=== PATIENT | female | born 1985 | race Two or more races ===

== ENCOUNTER 2017-06-15 12:57 | Emergency (ER) | payer OTHER ==
[2017-06-15] MEDS ORDERED: NS 1,000 ML IV ONE (13:24)
[2017-06-15 13:31] LABS: % IMMATURE GRANULYOCYTES 0.8 % (0.0-1.1); ABSOLUTE IMMATURE GRANULOCYTES 0.11 10^3/uL (0.00-0.10); ADD DIFF? NO; ADD MORPH? NO; ADD SCAN? NO; ATYPICAL LYMPHOCYTE FLAG 0 (0-99); FRAGMENT RBC FLAG 0 (0-99); HEMATOCRIT 41.6 % (38.0-47.0); HEMOGLOBIN 14.4 g/dL (12.6-16.3); LEFT SHIFT FLG 0 (0-99); LIPEMIA HEMOLYSIS FLAG 90 (0-99); MEAN CELL HEMOGLOBIN 29.3 pg (27.9-34.1); MEAN CELL HEMOGLOBIN CONCENTR. 34.6 g/dL (32.4-36.7); MEAN CELL VOLUME 84.6 fL (81.5-99.8); MEAN PLATELET VOLUME 9.7 fL (8.7-11.7); PLATELET CLUMPS FLAG 0 (0-99); PLATELET COUNT 259 10^3/uL (150-400); RED BLOOD CELL COUNT 4.92 10^6/uL (4.18-5.33); RED CELL DISTRIBUTION WIDTH 13.2 % (11.5-15.2)
--- NOTE | 2017-06-15 13:39 | EDPHY ---
H & P Stated Complaint: suprapubic abd pain fever chills/vaginal delivery 06/08 Time Seen by Provider: 06/15/17 13:23 HPI/ROS: CHIEF COMPLAINT: Suprapubic pain, chills, fever, 8 days HISTORY OF PRESENT ILLNESS: This is a 31-year-old female presenting 8 days after vaginal delivery. Delivery was complicated by premature rupture of the membranes 60 hours prior to . Patient labored at home for 48 hours desiring a home . She then presented to [facility] where she had a vaginal delivery. 7 lb 1 oz infant. Patient describes no complications with the delivery. Reports lochia has been moderate with some blood clots. Nursing well. Developed pelvic and suprapubic pain during the night. Woke at 6 this morning with chills, temperature to 100, and increasing suprapubic pain. The patient was seen by her senior controls analyst today at home who notes slight increase in the palpable size of the uterus. Denies any chest pain or shortness of breath. Denies any breast pain other than engorgement. Denies vomiting or diarrhea. Denies urinary tract complaints. REVIEW OF SYSTEMS: Aside from elements discussed in the HPI, a comprehensive 10-point review of systems was reviewed and is negative. PAST MEDICAL HISTORY: Denies. SOCIAL HISTORY: Nonsmoker. No alcohol use. VITAL SIGNS Reviewed by me. GENERAL: Well-developed, well-nourished, resting comfortably in no respiratory distress. HEENT: Atraumatic. Eyes: No icterus, no injection. Mouth: moist mucous membranes. No erythema or lesions. Neck: supple with no adenopathy. LUNGS: Clear to auscultation bilaterally, no wheezes, rhonchi or rales. CARDIAC: Regular rate and rhythm, no rubs, murmurs or gallops. ABDOMEN: Soft, suprapubic tenderness. No guarding or rebound. Uterus is palpable above the the pelvic rim. BACK: No CVA tenderness. EXTREMITIES: No trauma. No edema. Range of motion is normal throughout. NEURO: Alert and oriented, grossly nonfocal. SKIN: Warm and dry, no rash. PSYCHIATRIC: Normal mentation, no agitation. - Personal History LMP (Females 10-55): Now Current Tetanus/Diphtheria Vaccine: Yes - Medical/Surgical History Hx Asthma: No Hx Chronic Respiratory Disease: No Hx Diabetes: No Hx Cardiac Disease: No Hx Renal Disease: No Hx Cirrhosis: No Hx Alcoholism: No Hx HIV/AIDS: No Hx Splenectomy or Spleen Trauma: No Other PMH: denies - Social History Smoking Status: Never smoked Constitutional: Initial Vital Signs Temperature (C) 36.6 C 06/15/17 13:01 Heart Rate 122 H 06/15/17 13:01 Respiratory Rate 18 06/15/17 13:01 Blood Pressure 108/82 H 06/15/17 13:01 O2 Sat (%) 94 06/15/17 13:01 O2 Delivery Mode Room Air Allergies/Adverse Reactions: No Known Allergies Allergy (Unverified 06/15/17 13:00) Home Medications: Medication Instructions Recorded Cephalexin [Keflex (RX)] 500 mg PO QID 5 Days cap 06/15/17 Clindamycin HCl [Clindamycin] 300 mg PO TID 5 Days cap 06/15/17 Misoprostol [Cytotec] 200 mcg PO BID #4 tablet 06/15/17 Medical Decision Making ED Course/Re-evaluation: 31 year old female 8 days post with fever at home, pelvic, and suprapubic pain. No dysuria. Lochia has been moderate to mild, passing some clots. No vomiting. Tachycardic but overall well looking. IV established. Given fluids. Labs demonstrate leukocytosis. Ultrasound with heterogeneous material and thickened endometrium. DW Dr Camarillo, who reviewed labs, and ultrasound. Recommends outpatient therapy if patient comfortable with that plan; at 8 days post thickness of endometrium is still within normal limits. Will place on oral antibiotics, encourage fluids, close follow up. Return if worse. Also discussed prescription for cytotec if patient desires to encourage passage of endometrial cavity material. Decision made by patient and to start cephalexin and clindamycin. Patient nursing and cautious about oral meds in light of effects and effects to . Dr. Camarillo in agreement with regiment. Long discussion held concerning plan of care, expected improvement, reasons to return, concerning sign requiring immediate attention. Patient comfortable with plan. Will follow up with Dr Camarillo or with senior controls analyst group. Differential Diagnosis: Diff dx considered included mastitis, uti, pyelonephritis, endometritis, viral syndrome, dehydration, retained products. - Data Points Laboratory Results: Laboratory Results 06/15/17 13:15 06/15/17 13:15 Microbiology Results: MICROBIOLOGY 06/15/17 14:00 Blood Blood Culture - Preliminary Gram Positive Cocci Chains 06/15/17 14:00 Blood Blood Panel (PCR) - Final Streptococcus Medications Given: Discontinued Medications Sodium Chloride (Ns) 1,000 mls @ 0 mls/hr IV ONCE ONE; Wide Open PRN Reason: Protocol Stop: 06/15/17 13:25 Last Admin: 06/15/17 14:00 Dose: 1,000 mls Departure - Departure Disposition: Home, Routine, Self-Care Clinical Impression: Suprapubic pain, Retained products of conception Condition: Good Instructions: Bleeding (ED) Additional Instructions: 1. Please begin taking the antibiotics as directed. Keflex 500 mg by mouth 4 times a day for 5 days and clindamycin 300 mg 3 times a day for 5 days. 2. Drink plenty of fluid. Get plenty of rest. 3. I recommend Ibuprofen (Motrin, Advil) for pain and anti-inflammatory effects. Your dose is: Ibuprofen 600 mg every 6-8 hours with food. 4. Please follow up with Dr. Camarillo this week. 5. You have also been given a prescription of cytotec. You may take this as directed. It will cause increased cramping and bleeding but may help you to pass the remaining tissue. 6. Return to the emergency department or seek care urgently if you developed increasing pelvic pain, fever greater than 100.4, vomiting, severe bleeding, or other concerns. Referrals: Monique Camarillo DO [Doctor of Osteopathy] - As per Instructions Prescriptions: Cephalexin [Keflex (RX)] 500 mg PO QID 5 Days cap Clindamycin HCl [Clindamycin] 300 mg PO TID 5 Days cap Misoprostol [Cytotec] 200 mcg PO BID #4 tablet
[2017-06-15 13:42] LABS: APTT 26.3 SEC (23.0-38.0); INR 1.01 (0.83-1.16); PROTIME(PATIENT) 13.2 SEC (12.0-15.0)
[2017-06-15 13:44] LABS: ANION GAP 13 mEq/L (8-16); BILIRUBIN,TOTAL 0.5 mg/dL (0.1-1.4); CALCIUM 10.2 mg/dL (8.5-10.4); CARBON DIOXIDE 22 mEq/l (22-31); CHLORIDE 102 mEq/L (97-110); CREATININE 0.8 mg/dL (0.6-1.0); GLOMERULAR FILTRATION RATE > 60; GLUCOSE 85 mg/dL (70-100); SODIUM 137 mEq/L (134-144)
[2017-06-15 14:05] VITALS: PULSE 97; RESP 16
[2017-06-15 15:06] VITALS: BP 117/86; TEMP 97.9; O2SAT 97
[2017-06-15 16:18] LABS: COLOR YELLOW; LEUKOCYTE ESTERASE,URINE 3+ (NEGATIVE); NITRITE,URINE NEGATIVE (NEGATIVE)
[2017-06-15 16:21] LABS: BACTERIA 2+ /hpf (NONE SEEN); RBC,URINE 50-182 /hpf (0-3); WBC,URINE 50-182 /hpf (0-3)
== END 2017-06-15 16:00 | disposition home or self-care (01) ==
DX: O99.89 Other specified diseases and conditions complicating pregnancy, childbirth and the puerperium (principal); R10.9 Unspecified abdominal pain; O72.2 Delayed and secondary postpartum hemorrhage; E86.9 Volume depletion, unspecified